=== PATIENT | male | born 1985 | race African-American/Black ===

== ENCOUNTER 2017-08-19 16:20 | Emergency (ER) | payer OTHER ==
[~2017-08-19] VITALS: Ht 170.2 cm; Wt 90.8 kg
[~2017-08-19 16:20] MED LIST: BENTYL10 MG PO; FLONASE16 G1 BOTH NARES; MOTRIN800 MG PO; MUCUS RELIEF600 M1 PO; NAPROSYN500 MG PO; NAPROXEN500 MG PO; OXYCODONE HCL5 MG PO; PEN-VEE K,VEET500 MG PO; PERIDEX1 ML MM; PREDNISONE20 MG PO; PROMETHAZINE HC25 M1 PO; ULTRAM50 MG PO
[2017-08-19 16:40] VITALS: BP 123/69
== END 2017-08-19 19:21 | disposition home or self-care (01) ==
LOC: EME 16:20
PROC: 0HQFXZZ Repair Right Hand Skin, External Approach (ICD-10-PCS; principal; 2017-08-19)
DX: S61.210A Laceration without foreign body of right index finger without damage to nail, initial encounter (principal); W26.8XXA Contact with other sharp object(s), not elsewhere classified, initial encounter; F17.200 Nicotine dependence, unspecified, uncomplicated
CPT/HCPCS: 99281; 99285